=== PATIENT | male | born 1950 | race Caucasian/White ===

== ENCOUNTER 2020-05-01 10:13 | Outpatient (CLI) | payer MEDICARE, OTHER, SELFPAY ==
--- NOTE | 2020-05-01 10:33 | XR_ITS ---
WS: [id number] LUMBAR SPINE: 3 VIEWS TECHNIQUE: AP, lateral and L5-S1 spot. HISTORY: SCIATIC LEG PAIN/LUMBAR PAIN COMPARISON: None available. Lumbar vertebra are normally aligned. Disc spaces are preserved. Endplate osteophytes at all levels and osteopenia. Facet joint arthritis i s mild at L4-5 and L5-S1. No fracture. Very mild narrowing of the AC joints. No fusion. Vascular calcifications in the splenic artery. RIGHT upper quadrant calcifications are probably stones in the gallbladder. XR/XR lumbar spine 2-3V* [id number] IMPRESSION: 1. Moderate lumbar spondylosis. No fracture. 2. Cholelithiasis.
== END 2020-05-01 10:14 | disposition home or self-care (01) ==
PROVIDERS: PCP Nurse Practitioner Family; Visit Provider Nurse Practitioner Family
DX: M54.30 Sciatica, unspecified side (principal); M47.816 Spondylosis without myelopathy or radiculopathy, lumbar region; K80.20 Calculus of gallbladder without cholecystitis without obstruction
CPT/HCPCS: 72100

== ENCOUNTER 2021-10-20 16:31 | Day surgery (SDC) | payer MEDICARE, OTHER, SELFPAY ==
[2021-10-20] VITALS (9 sets, daily range): BP systolic 143–190; BP diastolic 82–113; PULSE 68–98; RESP 12–18; TEMP 36.1–36.6; O2SAT 98–100
--- NOTE | 2021-10-20 17:24 | CTR_ITS ---
PROCEDURE INFORMATION: Exam: CT Neck Without Contrast Exam date and time: 10/20/2021 6:34 PM Age: 71 years old Clinical indication: Dysphagia / difficulty swallowing; Additional info: Dysphagia, possible fb in pharynx TECHNIQUE: Imaging protocol: Computed tomography images of the neck without contrast. Radiation optimization: All CT scans at this facility use at least one of these dose optimization techniques: automated exposure control; mA and/or kV adjustment per patient size (includes targeted exams where dose is matched to clinical indication); or iterative reconstruction. COMPARISON: No relevant prior studies available. RADIATION DOSE METRICS: Total DLP (mGy-cm): 359.95 FINDINGS: Pharynx: Unremarkable. No significant tonsillar enlargement. Larynx: Unremarkable. Epiglottis is normal. Prevertebral and retropharyngeal spaces: Unremarkable. Parotid and submandibular glands: Normal. Glands are normal in size. Thyroid: Normal. No enlarged or calcified nodules. Lymph nodes: Unremarkable. No lymphadenopathy. Trachea: Visualized trachea is unremarkable. Lungs: Unremarkable as visualized. Esophagus: There is a somewhat linear radiopaque foreign body object in the lumen of the distal cervical esophagus centered at the C6-C7 level. The object spans about 2.7 cm in transverse diameter and is relatively thin, measuring about 3 mm in AP dimension. No wall thickening cervical esophagus identified. Bones/joints: Unremarkable. No acute fracture. Soft tissues: Unremarkable. No significant soft tissue swelling. CT/CT neck con [id number] IMPRESSION: 1. Radiopaque foreign body object within the lumen of the distal cervical esophagus. 2. Negative for esophageal perforation.
--- NOTE | 2021-10-20 17:26 | W.ED.GENADLT ---
Documented by User: Harman Merino DO 10/21/21 05:53 HPI - General Adult General: Chief complaint: Airway/Esophagus Foreign Body Stated complaint: says his throats all swollen and cant talk Time Seen by Provider: 10/20/21 16:54 Source: patient Mode of arrival: ambulatory Limitations: no limitations History of Present Illness: 71 yo male presents emergency room with complaint of a globus sensation. He was eating was a family member and a young child began having difficulty choking he tried to quickly swallow the food bolus he had in his mouth he had a choking sensation he was able to get a swallow down has not had a difficulty with swallowing since then he has not been drooling he can swallow fluids without any difficulty. He has not had any vomiting or diarrhea has had a very hoarse voice however in the course of taking his history he is able to talk almost at a normal level according to family member who accompanies him. No previous history of the laryngeal problems no previous history of Zenker's diverticuli or esophageal strictures. Onset (ago): minute(s) Location: neck Severity: moderate Quality: aching Pain Consistency: intermittent Relieving factors: none Exacerbating factors: none Associated symptoms: Deny chest pain, confusion, cough, diaphoresis, decreased appetite, dyspnea, fevers/chills, headache(s), malaise, nausea, rash, palpitations, seizures, short of breath, syncope, vomiting or weakness Treatments prior to arrival: none Review of Systems Const: Denies: fever(s), chills, malaise or diaphoresis ENMT: Denies: throat pain, ear or mastoid pain, nasal discharge or nasal congestion Card: Denies: chest pain, palpitations or syncope Resp: Denies: dyspnea GI: Denies: abdominal pain, nausea or vomiting : Denies: flank pain, difficulty urinating, dysuria, urinary frequency or urinary urgency Skin/Breast: Denies: rash Neuro: Denies: headache(s) or confusion PFS ED PFSH: Medical History Thoracic aortic aneurysm Surgical History H/O thoracic aortic aneurysm repair Physical Exam Const: COMMON NORMALS: no acute distress GENERAL APPEARANCE: cooperative and comfortable ORIENTATION/CONSCIOUSNESS: Yes awake, Yes oriented to person, Yes oriented to place and Yes oriented to time HENMT: COMMON NORMALS: normocephalic, atraumatic and hearing grossly normal bilaterally HEAD & SCALP: normocephalic and atraumatic Neck/C-Spine: COMMON NORMALS: full ROM, no lymphadenopathy, supple and no JVD OTHER: No auscultated will stridor on inspiration Resp: COMMON NORMALS: normal respiratory effort, No retractions, No use of accessory muscles and clear to auscultation bilaterally AUSCULTATION: clear to auscultation bilaterally Cardio: COMMON NORMALS: no JVD, regular rate, regular rhythm and No murmurs present (Cardio) RATE: regular rate RHYTHM: regular rhythm GI: COMMON NORMALS: Soft to palpation and No hepatosplenomegaly present AUSCULTATION: Yes normoactive bowel sounds PALPATION: Yes Soft to palpation, No Tenderness to palpation present (GI), No Guarding due to palpation present (GI) and Yes No hepatosplenomegaly present Neuro: SENSORIUM/ORIENTATION: Yes oriented to person, Yes oriented to place and Yes oriented to time Skin: COMMON NORMALS: no rashes or lesions noted GENERAL SKIN EXAM: no rashes or lesions noted Course Vital Signs: Vital signs: Vital Signs Temperature 97.4 F L 10/20/21 20:33 Pulse Rate 68 10/20/21 21:13 Respiratory Rate 18 10/20/21 21:13 Blood Pressure 153/99 10/20/21 21:13 Pulse Oximetry 100 10/20/21 21:13 [facility] - General Adult Medical Decision Making Care signed out to Dr. Robles at change of shift. See final notes for diagnosis and disposition. CT showed esophageal foreign body I did speak to surgeon on-call will call in the GI lab at this time. Medical Records I reviewed the patient's medical records. Lab Data I reviewed the patient's lab results. Radiology Impressions Neck CT 10/20/21 17:24 IMPRESSION: 1. Radiopaque foreign body object within the lumen of the distal cervical esophagus. 2. Negative for esophageal perforation. Discharge Plan Discharge Patient Disposition: Admitted As Inpatient Clinical Impression: Food impaction of esophagus Condition: Stable Discharge Diet: Advance as tolerated and Full LIquid Coding Level of Care Code ED Glass Technician/Installer for Chg Fwd Exam Detailed Documented by User: Epifanio Robles MD 10/20/21 19:09 HPI - General Adult General: Chief complaint: Airway/Esophagus Foreign Body Stated complaint: says his throats all swollen and cant talk Time Seen by Provider: 10/20/21 16:54 PFSH ED PFSH: Medical History Thoracic aortic aneurysm Surgical History H/O thoracic aortic aneurysm repair Course Vital Signs: Vital signs: Vital Signs Temperature 97.4 F L 10/20/21 20:33 Pulse Rate 68 10/20/21 21:13 Respiratory Rate 18 10/20/21 21:13 Blood Pressure 153/99 10/20/21 21:13 Pulse Oximetry 100 10/20/21 21:13 [facility] - General Adult Medical Decision Making Care signed out to Dr. Robles at change of shift. See final notes for diagnosis and disposition. CT showed esophageal foreign body I did speak to surgeon on-call will call in the GI lab at this time. Lab Data Radiology Impressions Neck CT 10/20/21 17:24
--- NOTE | 2021-10-20 19:33 | P.HP_ITS ---
Providers/Chief Complaint Primary Care Provider: Roselia Gibbs, STADIUM MANAGER Chief Complaint: says his throats all swollen and cant talk History of Present Illness Alex Negrete is a 71 year old male who was eating chicken at about noon today and quickly swallowed a mouthful of chicken to go help his grandson who appeared to be choking. The food got stuck in the back of his throat and he has had a sore throat and difficulty talking since. He is able to swallow his saliva. The pain is dull and constant and located in his throat. Talking makes the pain worse. Nothing seems to make the pain better. He denies any other symptoms. He does have a history of thoracic aortic aneurysm repair. He is not on any blood thinners other than a baby aspirin. CT of the cervical spine shows a radiopaque foreign body in the cervical esophagus, consistent with a chicken bone. Review of Systems General: Reports: 10 or more systems reviewed and unremarkable except in HPI and below Medications/Allergies Allergies Allergy/AdvReac Type Severity Reaction Status Date / Time Penicillins Allergy ALGY-Difficulty Verified 10/20/21 17:05 Breathing PFSH Acute PFSH: Medical History (Updated 10/20/21 @ 19:08 by Epifanio Robles MD) Thoracic aortic aneurysm Surgical History (Updated 10/20/21 @ 17:41 by Harman Merino DO) H/O thoracic aortic aneurysm repair Vitals/I&O/Wt Last Vital Signs Temp 97.8 F 10/20/21 17:00 Pulse 72 10/20/21 17:00 Resp 16 10/20/21 17:00 BP 186/97 10/20/21 17:00 Pulse Ox 98 10/20/21 17:00 Weight last 48 hrs Weight 185 lb Physical Exam Narrative: General : Patient is well developed , no acute distress, oriented x3 Head : Normal cephalic, a-traumatic. Ears : Pinnae and external canal are normal. Hearing is normal. Eyes : PERRLA, Sclera and injection are normal. No conjunctival discharge. Nose : Mucous membranes are without erythema. Throat : buccal mucosa is normal, gums are without significant recession or hypertrophy. Voice is hoarse Lungs : Equal chest rise bilaterally, no use of accessory muscles, trachea is midline. Cor : Rate and rhythm are normal. Abdomen : Soft, ND, NT, no g/r/m Extremities : No edema, no cyanosis or clubbing, dorsalis pedis pulses are present bilaterally, non-tender to palpation of calves. Upper extremities are normal bilaterally. Back : non-tender to palpation, no CVA tenderness. Neuro : CN II - XII intact, Upper and lower extremities have equal and full strength A&P Assessment and plan (1) Food impaction of esophagus: Status: Acute Plan EGD with removal of foreign body The risks and benefits of the procedure, including bleeding, infection, intestinal perforation requiring surgery, missed lesion, or explained to the patient. He is understanding of the risks and wishes to proceed. I explained to the patient that there is a significantly higher risk of perforation in this case, as it appears to be a thin, sharp chicken bone lodged in his cervical esophagus. I will attempt to remove the foreign body through his mouth. If this turns out to be more difficult than anticipated or if there is an apparent perforation from the chicken bone, he will need to be transferred to a tertiary care center. Attestations Medical Necessity Statement*: Patient will be sent home after the procedure or transferred to a tertiary care for center if unsuccessful or perforation present. Coding Level of Care Code Acute Superintendent Transmission for Poncho Paredes Diagnoses Food impaction of esophagus T18.128A
--- NOTE | 2021-10-20 19:38 | ANES.PREANE2 ---
Pre-Anesthetic Assessment Height/Weight: Weight 83.915 kg Temp Pulse Resp BP Pulse Ox 97.8 F 72 16 186/97 98 10/20/21 17:00 10/20/21 17:00 10/20/21 17:00 10/20/21 17:00 10/20/21 17:00 Preop Diagnosis: food bolus EGD, removal foreign body Familial anesthetic complications: none Was Beta Lyubov taken within 24 hours: Yes Was Clonidine taken within 24 hours: N/A Social No alcohol and No tobacco Exam alert, oriented x 3, clear to auscultation bilaterally and regular rate & rhythm Airway Submandibular: within normal limits Cervical ROM: within normal limits Mallampati: Class II Dentition: partials Pulmonary None reported CV/HEM Hypertension Thoracic aneurysm None reported Hepatic None reported GI CT 10/20/2021 CT/CT neck wo con [id number] IMPRESSION: 1. Radiopaque foreign body object within the lumen of the distal cervical esophagus. 2. Negative for esophageal perforation. ? Metabolic None reported Musc/skel Osteoarthritis/DJD Neuropsych None reported Anesthetic Plan ASA status: 3 (71 year old male with food impaction s/p thoracic aneurysm repair 2020, hx of htn ) Anesthesia: Anesthesia Evaluation and General Other: We discussed risk and benefits of general anesthesia including PONV, sore throat (sometimes severe), corneal abrasion, positioning and peripheral nerve injuries, life threatening allergic reaction, post operative ICU admission requiring prolonged intubation, stroke, heart attack, , and rare incidences of recall. Patient consents to proceed with general anesthesia. Risk of > 500 ml blood loss (7ml/kg in children): No Medications/Allergies Allergies Allergy/AdvReac Type Severity Reaction Status Date / Time Penicillins Allergy ALGY-Difficulty Verified 10/20/21 17:05 Breathing [facility] Anesthesia Medical History Thoracic aortic aneurysm Surgical History H/O thoracic aortic aneurysm repair Data Anesthesia Cardiac Studies: No Data to Display
--- NOTE | 2021-10-20 19:39 | ECG_ITS ---
[facility] Test Date: 2021-10-20 Pat Name: Alex Negrete Department: Room: Gender: Male Leakage Tester: : 1950 Requested By: Rob Hartmann Order Number: [id number] Hailee MD: Suleiman Martinez M.D. Measurements Intervals [place] Rate: 82 P: 65 RI: 167 QRS: 12 QRSD: 91 T: 66 QT: 382 QTc: 447 Interpretive Statements SINUS RHYTHM WITH SINUS ARRHYTHMIA POSSIBLE RIGHT VENTRICULAR CONDUCTION DELAY [RSR (QR) IN V1/V2] No previous ECG available for comparison Electronically Signed On 10-21-2021 9:30:10 CDT by Suleiman Martinez M.D. [id number]
[2021-10-20] MEDS: sodium chloride 0.9% 1,000 ML 30 ML IV (20:10)
--- NOTE | 2021-10-21 07:41 | ANE.PACU2 ---
Inpatient post-anesthesia follow up: Airway intact: Yes Vital signs: Temperature 97.4 F Pulse Rate 68 Respiratory Rate 18 Blood Pressure 153/99 Pulse Oximetry 100 Oxygen Delivery Me thod Room Air Oxygen Flow Rate 6 Fraction of Inspir ed Oxygen Hydration adequate: Yes Nausea and vomiting: No Pain level: 1 Mental status: Baseline
--- NOTE | 2021-10-21 08:07 | ANES.PROC ---
Anesthesia Procedures Procedure/Date: 10/21/21 Other Information: Patient in sitting position. Full monitors, simpe mask 10 LPM. Time out. Cap, mask donned by all staff present. Sterile prep w/ Chlorprep. Drape. 1% lidocaine skin wheel. Introducer. 24 g Pencan, + birefringence, no heme. 1.6 ml 0.75% bupivacaine w/ dextrose. Tolerated well. Good block.
== END 2021-10-20 21:25 | disposition home or self-care (01) ==
LOC: ER 19:08 → GILAB 19:14
PROVIDERS: Emergency Provider Emergency Medicine; PCP Nurse Practitioner Family; Visit Provider Surgery
PROC: 0DJ08ZZ Inspection of Upper Intestinal Tract, Via Natural or Artificial Opening Endoscopic (ICD-10-PCS; CPT 43235; 2021-10-20 19:50)
DX: T18.128A Food in esophagus causing other injury, initial encounter (principal); I10 Essential (primary) hypertension
CPT/HCPCS: 70490; 93005; J0330; J1100; J2405; J2704; J3010; J3490; J7030

== ENCOUNTER → 2022-03-06 14:16 | Outpatient (BNVA) | payer MEDICARE, OTHER, SELFPAY | PROVIDERS: PCP Nurse Practitioner Family; Visit Provider Emergency Medicine | DX: M79.672 Pain in left foot (principal) | CPT/HCPCS: 73630 ==

== ENCOUNTER → 2024-07-25 06:45 | Outpatient (BNVA) | payer MEDICARE, OTHER, SELFPAY | PROVIDERS: PCP Nurse Practitioner Family; Visit Provider Podiatrist Foot & Ankle Surgery | DX: L60.8 Other nail disorders (principal) | CPT/HCPCS: 99203 ==

== ENCOUNTER → 2024-08-15 06:53 | Outpatient (BNVA) | payer MEDICARE, OTHER, SELFPAY | PROVIDERS: PCP Nurse Practitioner Family; Visit Provider Podiatrist Foot & Ankle Surgery | DX: L60.8 Other nail disorders (principal) | CPT/HCPCS: 11750; J9999 ==

== ENCOUNTER → 2024-08-28 08:56 | Outpatient (BNVA) | payer MEDICARE, OTHER, SELFPAY | PROVIDERS: PCP Nurse Practitioner Family; Visit Provider Podiatrist Foot & Ankle Surgery | DX: L60.8 Other nail disorders (principal); Z98.890 Other specified postprocedural states | CPT/HCPCS: 99213 ==

== ENCOUNTER → 2025-04-28 08:15 | Outpatient (BNVA) | payer MEDICARE, OTHER, SELFPAY | PROVIDERS: PCP Nurse Practitioner Family; Visit Provider Student in an Organized Health Care Education/Training Program | DX: K40.90 Unilateral inguinal hernia, without obstruction or gangrene, not specified as recurrent (principal); R03.0 Elevated blood-pressure reading, without diagnosis of hypertension | CPT/HCPCS: 99204 ==

== ENCOUNTER 2025-05-06 07:55 | Outpatient (CLI) | payer MEDICARE, OTHER, SELFPAY ==
--- NOTE | 2025-05-06 08:15 | CT_ITS ---
WS: [id number] CT ABDOMEN PELVIS TECHNIQUE: Contrast-enhanced CT of the abdomen and pelvis with coronal and sagittal reformatted images. CLINICAL INFORMATION: inguinal hernia COMPARISON: None. DLP: 353.[address] scans at [facility] use at least one of these dose optimization techniques: automated exposure control; mA and/or kV adjustment per patient size (includes targeted exams where dose is matched to clinical indication); or iterative reconstruction. FINDINGS: Fat-containing RIGHT inguinal hernia. No herniated bowel. No evidence of bowel obstruction. Tiny fat-containing umbilical hernia. Lung bases are well aerated. Numerous hepatic cysts. Cholelithiasis. No gallbladder wall thickening or pericholecystic fluid. Visualized common bile duct appears normal. Splenic artery calcification. Small esophageal hiatal hernia. Mild aortic calcification. Portal vein and splenic vein are patent. Nor mal spleen. Celiac and SMA are patent. Adrenal glands are normal. No hydronephrosis. Bilateral renal cysts larger on the RIGHT measuring 4.0 cm. Prostate measures 4.5 cm calcification. Small cystocele. Mild bladder wall thickening can be seen with bladder outlet obstruction. Trace free fluid in the cul-de-sac. Sigmoid diverticulosis. Normal appendix. Moderate spondylitic changes lumbar spine. CT/CT abdomen pelvis w con* [id number] IMPRESSION: 1. Fat-containing RIGHT inguinal hernia. No herniated bowel. 2. Tiny fat-containing umbilical hernia. 3. Numerous hepatic cysts. 4. Cholelithiasis. 5. Bilateral renal cysts largest on the RIGHT measuring 4.0 cm 6. Sigmoid diverticulosis. 7. Enlarged prostate measuring 4.5 cm. Recommend correlation PSA.
[2025-05-06 08:45] LABS: Blood Urea Nitrogen 21 mg/dL (8-23)
[2025-05-06] MEDS: iohexol 350 mg/mL 500 mL Btl (per mL) IV (08:50)
== END 2025-05-06 07:56 | disposition home or self-care (01) ==
PROVIDERS: PCP Nurse Practitioner Family; Visit Provider Student in an Organized Health Care Education/Training Program
DX: K40.90 Unilateral inguinal hernia, without obstruction or gangrene, not specified as recurrent (principal); K42.9 Umbilical hernia without obstruction or gangrene; K76.89 Other specified diseases of liver; K80.20 Calculus of gallbladder without cholecystitis without obstruction; N28.1 Cyst of kidney, acquired; K57.32 Diverticulitis of large intestine without perforation or abscess without bleeding; N40.0 Benign prostatic hyperplasia without lower urinary tract symptoms
CPT/HCPCS: 74177; 82565; 84520